=== PATIENT | female | born 1980 | race Caucasian/White ===

== ENCOUNTER 2024-11-21 12:50 | Outpatient (CLI) | payer OTHER, SELFPAY ==
--- OUTSIDE RECORDS SUMMARY | 2024-11-21 13:51 | XMS_ITS | Encounter Summary ---
Author Organization Healthcare Address [address] [place] [address] Care Team Providers Care Chief Librarian Extension Department Name Role Phone Satish Luna David FUCHS Primary Care Provider Reason for Visit * Reason Comments Med Change Request Encounter Details Date Type Department Care Team (Late st Contact Info) Description 04/21/2023 Refill [facility] [address], [address] [place] [address] Lorna Toledo, FARRUKH, DNP [address] [place] [address] Social History Tobacco Use Types Packs/Day Years Used Date Smoking Tobacco: Every Day Cigarettes Smokeless Tobacco: Never Alcohol Use Standard Drinks/Week Comments Not Currently 0 (1 standard drink = 0.6 oz pure alcohol) Alcoholic Drinks/day: Former consumption of alcohol PHQ-2 Answer Date Recorded Patient Health Questionnaire-2 Score 1 01/24/2022 Comments Unknown Sex and Gender Information Value Date Recorded Sex Assigned at Not on file Legal Sex Female 8:24 PM EDT Gender Identity Not on file Sexual Orientation Not on file documented as of this encounter Miscellaneous Notes * Telephone Encounter - Soraida Sanford, PharmD - 04/21/2023 4:20 PM EST Per protocol, 1 medication(s), tizanidine, has been approved for 90 day supply with 0 refill(s) to [facility] pharmacy. documented in this encounter Plan of Treatment Not on file documented as of this encounter Visit Diagnoses Not on filedocumented in this encounter Additional Health Concerns Assessment Noted Time A fall risk assessment has been complete d for the patient 01/24/2022 12:51 PM EDT documented as of this encounter Care Teams Chief Librarian Extension Department Relationship Specialty Start Date End Date Satish Luna DO [address] [facility] [address] [place] [address] PCP - General 10/23/20 documented as of this encounter
--- OUTSIDE RECORDS SUMMARY | 2024-11-21 13:51 | XMS_ITS | Encounter Summary ---
Author Organization Healthcare Address [address] [place] [address] Care Team Providers Care Financial Engineer Name Role Phone Satish Luna David FUCHS Primary Care Provider Reason for Visit * Reason Comments Med Refill Encounter Details Date Type Department Care Team (Late st Contact Info) Description 01/27/2023 Refill [facility] [address] [place] [address] Lorna Toledo APRN, DNP [address] [place] [address] Social History Tobacco Use Types [...] encounter Miscellaneous Notes * Telephone Encounter - Lorna Toledo APRN, DNP - 01/30/2023 11:21 AM EDT Please schedule follow-up, refills provided until able to be seen. Thank you. * Telephone Encounter - Jasmin Carrillo, RidgeD - 01/30/2023 7:46 AM EDT Refill request does not meet protocol. Sending to clinic for review. Additional info: Pt was supposed to been seen for 12 week f/u after 04/28 appt with no appt on schedule at this time. Please review for scheduling and provide refills as appropriate. documented in this encounter Plan of Treatment Not on file documented as of this encounter Visit Diagnoses Not on filedocumented in this encounter Additional Health Concerns Assessment Noted Time A fall risk assessment has been complete d for the patient 01/24/2022 12:51 PM EDT documented as of this encounter Care Teams Financial Engineer Relationship Specialty Start Date End Date Satish Luna DO [facility] [address] [place] [address] PCP - General 10/23/20 documented as of this encounter
--- OUTSIDE RECORDS SUMMARY | 2024-11-21 13:51 | XMS_ITS | Encounter Summary ---
Author Organization Healthcare Address [address] [place] [address] Care Team Providers Care Buyer Broker Name Role Phone Satish Luna David FUCHS Primary Care Provider Reason for Visit * Reason Comments Med Refill Encounter Details Date Type Department Care Team (Late st Contact Info) Description 03/17/2023 Refill [facility] [address], [address] [place] [address] Lorna Toledo, FARRUKH, DNP [address] [place] [address] Social History Tobacco Use Types [...] Telephone Encounter - Soraida Sanford, PharmD - 03/17/2023 9:32 AM EDT Per protocol, 1 medication(s), tizanidine, has been approved for 30 day supply with 2 refill(s) to [facility] pharmacy. documented in this encounter Plan of Treatment Not on file documented as of this encounter Visit Diagnoses Not on filedocumented in this encounter Additional Health Concerns Assessment Noted Time A fall risk assessment has been complete d for the patient 01/24/2022 12:51 PM EDT documented as of this encounter Care Teams Buyer Broker Relationship Specialty Start Date End Date Satish Luna DO [facility] [address] [place] [address] PCP - General 10/23/20 documented as of this encounter
--- OUTSIDE RECORDS SUMMARY | 2024-11-21 13:51 | XMS_ITS | Clinical Summary ---
Author Organization [facility] Address [address] [place] [place] [address] Care Team Providers Care Keno Writer/Runner Name Role Phone Chase Lunaew David FUCHS Primary Care Provider Allergies Active Allergy Reactions Criticality Noted Date Comments Amitriptyline Other - please document in the comment field Low 01/19/2011 hands shake severely Cephalexin Hives Medium 01/19/2011 Clarithromycin Other - please document in the comment field,Nausea Low 01/19/2011 diarrhea; stomach cramps diarrhea; stomach cramps Sulfamethoxazole-Trimetho prim Nausea 08/16/2012 Medications atorvastatin (Lipitor) 40 MG tablet Take 1 tablet (40 mg) by mouth 1 (one) time each day. 07/20/2020 Active albuterol 108 (90 Base) MCG/ACT inhaler Inhale 2 puffs every 4 (four) hours. Active methocarbamol (Robaxin) 750 MG tablet START BY TAKING 1 TABLET BY MOUTH AT BEDTIME, INCREASE SLOWLY TO 1 TABLET TWICE DAILY, WITH A MAXIMUM OF 2 TABLETS THREE TIMES PER DAY NEEDED/TOLERA NORRIS. 180 tablet 3 08/09/2023 Active tiZANidine (Zanaflex) 2 MG tablet TAKE 1-2 TABLETS BY MOUTH UP TO 3 TIMES DAILY 540 tablet 1 11/23/2023 Active Active Problems Problem Noted Date Diagnosed Date Bladder pain 05/08/2022 Pelvic floor dysfunction 01/24/2022 Urinary frequency 01/24/2022 IC (interstitial cystitis) 01/24/2022 Family History Medical History Relation Name Comments Heart disease Father Saman malloy Cancer Father's Sister Shantell Warren Heart disease Father's Sister Shantell Warren Cancer Maternal Grandfather Murphy meza Heart disease Maternal Grandfather Murphy meza Hypertension Maternal Grandfather Murphy meza Hypertension, benign Maternal Grandfather Murphy meza Anesthesia problems Maternal Grandmother Carmen blum r Diabetes Maternal Grandmother Carmen meza Hypertension, benign Maternal Grandmother Carmen dawsonw er Hypercholesterolemia Mother Cancer Paternal Grandmother Deisy malloy Heart disease Paternal Grandmother Deisy malloy Hypertension Paternal Grandmother Deisy malloy Hypertension, benign Paternal Grandmother Deisy malloy Relation Name Status Comments Father Saman malloy Father's Sister Shantell Warren Maternal Grandfather Murphy meza Maternal Grandmother Carmen meza Mother Paternal Grandmother Deisy malloy Social History Tobacco Use Types Packs/Day Years Used Date Smoking Tobacco: Every Day Cigarettes Smokeless Tobacco: Never Tobacco Cessation:Ready to Q uit: Not Asked; Counseling Given: Not Answered Alcohol Use Standard Drinks/Week Comments Not Currently 0 (1 standard drink = 0.6 oz pure alcohol) Alcoholic Drinks/day: Former consumption of alcohol PHQ-2 Answer Date Recorded Patient Health Questionnaire-2 Score 0 07/20/2023 Comments Unknown Sex and Gender Information Value Date Recorded Sex Assigned at Not on file Legal Sex Female 8:24 PM EDT Gender Identity Not on file Sexual Orientation Not on file Last Filed Vital Signs Vital Sign Reading Time Taken Comments Blood Pressure 127/83 09/08/2021 11:45 AM EDT Pulse 108 09/08/2021 11:45 AM EDT Temperature - - Respiratory Rate - - Oxygen Saturation - - Inhaled Oxygen Concentration - - Weight 70.4 kg (155 lb 3.3 oz) 07/20/2023 11:12 AM EST Height 157.5 cm (5' 2 ) 07/20/2023 11:12 AM EST Body Mass Index 28.39 07/20/2023 11:12 AM EST Plan of Treatment Health Maintenance Due Date Last Done Comments [facility]-HIV Screening 1978 [facility]-Hepatitis C Screening 1978 [facility]-Infant/Child/Adol SDOH Screenings 1978 HPV Vaccines (1 - 3-dose series) 1993 [facility]- SDOH Screenings 1996 [facility]-Adult SDOH Screenings 1996 [facility]-DTaP,Tdap,and Td Vaccine s (1 - Tdap) 1997 [facility]-Hepatitis B Vaccines (1 of 3 - 19+ 3-dose series) 1997 [facility]-Pap Smear 11/22/1999 [facility]-Cervical Cancer Screening 2008 [facility]-HPV/Cotest 2008 [id number] Vaccine (1 - 2023-25 season) 2024 [facility]-Depression Screening 07/20/2024 07/20/2023 [facility]-Influenza Vaccine (Seaso n Ended) 2025 [facility]-Zoster Vaccines (1 of 2) 2028 [facility]-Obesity Intervention Completed 024, 04/28/2022 [facility]-HIB Vaccines Aged Out No longer e ligible based on patient's age to complete this topic [facility]-Hepatitis A Vaccines Aged Out No longer eligible based on patient's age to complete this topic [facility]-IPV Vaccines Aged Out No longer e ligible based on patient's age to complete this topic [facility]-Pneumococcal Vaccine: Pediatrics (0 to 5 Years) and At-Risk Patients (6 to 49 Years) Aged Out No longer eligible b ased on patient's age to complete this topic [facility]-Rotavirus Vaccines Aged Out No lo nger eligible based on patient's age to complete this topic Insurance HUMAN Care Teams Keno Writer/Runner Relationship Specialty Start Date End Date Satish Luna DO [address] [facility] [address] [place] [address] PCP - General 10/23/20
--- OUTSIDE RECORDS SUMMARY | 2024-11-21 13:51 | XMS_ITS | Encounter Summary ---
Author Organization Healthcare Address [address] [place] [address] Care Team Providers Care Foreign Student Adviser Name Role Phone Satish Luna David FUCHS Primary Care Provider Reason for Visit * Reason Comments Med Refill Encounter Details Date Type Department Care Team (Late st Contact Info) Description 07/06/2023 Refill [facility] [address] [place] [address] Lorna Toledo, FARRUKH, DNP [address] [place] [address] Social History Tobacco Use Types [...] encounter Miscellaneous Notes * Telephone Encounter - Jolene Donohue - 07/20/2023 3:19 PM EST Called and confirmed the patient's appointment gave date, time and location [facility] [address], [address] * Telephone Encounter - Yesica Rao - 07/07/2023 11:20 AM EST 07/07/23- The pt was called setup follow up for med refills * Telephone Encounter - Lorna Toledo APRN, DNP - 07/06/2023 9:18 AM EST Patient needs appt prior to refills, [facility] Dec appt. Thank you. * Telephone Encounter - Soraida Sanford PharmD - 07/06/2023 8:15 AM EST Refill request does not meet protocol. Sending to clinic for review. Additional info: Appointment compliance - Patient hasn't been seen in clinic in > 1.5 years. Please review for scheduling and if refills are appropriate. Several no show appts documented in this encounter Plan of Treatment Not on file documented as of this encounter Visit Diagnoses Not on filedocumented in this encounter Additional Health Concerns Assessment Noted Time A fall risk assessment has been complete d for the patient 01/24/2022 12:51 PM EDT documented as of this encounter Care Teams Foreign Student Adviser Relationship Specialty Start Date End Date Satish Luna DO [facility] [address] [place] [address] PCP - General 10/23/20 documented as of this encounter
--- NOTE | 2024-11-21 14:03 | XR_ITS ---
FINAL REPORT TECHNIQUE: Chest PA & Lateral CLINICAL HISTORY: chronic cough, smoker x 30 yrs COMPARISON: None FINDINGS: 2 views of the chest were performed. The heart size is normal. The mediastinum is within normal limits. There is no acute cardiopulmonary process. Mild scarring is present in the left lung base. There are no pleural effusions. There is no pneumothorax. The bony thorax appears intact. IMPRESSION: No acute cardiopulmonary process. Reviewed, Interpreted and Dictated by Javi Beard MD Transcribed by Lynette Marin Authenticated and [facility]
== END 2024-11-21 23:59 | disposition home or self-care (01) ==
PROVIDERS: Visit Provider Chiropractor
DX: R05.3 Chronic cough (principal); R06.02 Shortness of breath; F17.200 Nicotine dependence, unspecified, uncomplicated
CPT/HCPCS: 71046; 94010